=== PATIENT | male | born 1965 | race Caucasian/White ===

== ENCOUNTER 2020-08-13 15:36 | Emergency (ER) | payer OTHER ==
[2020-08-13 15:46] VITALS: BP 147/85; PULSE 82; TEMP 98; BMI 29.2
[2020-08-13] MEDS ORDERED: NAPROXEN 500 MG TABLET PO ONE (15:58)
[2020-08-13] MEDS ORDERED: NAPROXEN 500 MG TABLET ONE (16:17)
[2020-08-13 16:34] LABS: BASO % 0.4 % (0-2.0); EOS % 0.9 % (0-4.5); HEMATOCRIT 42.2 % (35.4-49); HEMOGLOBIN 14.3 GM/dl (11.7-16.9); MCH 29.8 pg (25.7-33.7); MEAN CELL VOLUME 87.6 fl (80-96); MEAN PLT VOLUME 8.3 fl (7.5-11.1); MONO % 7.5 % (3.8-10.2); NEUT % 68.2 % (42.8-82.8); PLATELET COUNT 207 K/MM3 (134-434); RBC 4.81 M/mm3 (4.00-5.60); RDW 12.4 % (11.9-15.9); WHITE BLOOD COUNT 10.6 K/mm3 (4.0-10.8)
[2020-08-13 17:12] LABS: ALBUMIN 4.4 g/dl (3.4-5.0); BILIRUBIN,TOTAL 0.5 mg/dl (0.2-1); CREATININE 1.1 mg/dl (0.55-1.3); POTASSIUM 4.1 mmol/L (3.5-5.1); TOT PROT 6.6 g/dl (6.4-8.2)
[2020-08-13 17:56] LABS: EPITHELIAL CELLS RARE /hpf
== END 2020-08-13 18:59 | disposition home or self-care (01) ==
LOC: FER 15:36
DX: N20.0 Calculus of kidney (principal); R10.9 Unspecified abdominal pain; R11.0 Nausea
CPT/HCPCS: 36415; 74176-TC; 80053; 81003; 81015; 85025; 87086; 99284-25

== ENCOUNTER 2020-08-17 12:48 | Emergency (ER) | payer OTHER ==
[2020-08-17 13:14] VITALS: BP 120/90; PULSE 65; TEMP 99.1; BMI 29.2
[2020-08-17] MEDS ORDERED: ACETAMINOPHEN 1000 MG/100 ML VIAL (NON FORMULARY) IVPB ONE (13:25)
[2020-08-17] MEDS ORDERED: ONDANSETRON 4 MG/2 ML VIAL IVPUSH ONE (13:25)
[2020-08-17] MEDS ORDERED: LACTATED RINGERS SOLUTION 1,000 ML/1,000 ML INFUS.BAG IV STA (13:26)
[2020-08-17] MEDS ORDERED: KETOROLAC TROMETHAMINE 30 MG/1 ML VIAL IVPUSH ONE (13:29)
[2020-08-17] MEDS ORDERED: KETOROLAC TROMETHAMINE 30 MG/1 ML VIAL ONE (13:40)
[2020-08-17] MEDS ORDERED: ONDANSETRON 4 MG/2 ML VIAL ONE (13:41)
[2020-08-17] MEDS ORDERED: ACETAMINOPHEN INJECTION 100 ML IVPB ONE (13:41)
[2020-08-17 14:19] LABS: HEMOGLOBIN 14.5 GM/dl (11.7-16.9); MEAN PLT VOLUME 8.8 fl (7.5-11.1)
[2020-08-17 14:22] LABS: BASO % 2.7 % (0-2.0); EOS % 1.6 % (0-4.5); HEMATOCRIT 42.3 % (35.4-49); LYMPH % 24.4 % (8-40); MCHC 34.2 g/dl (32.0-35.9); MEAN CELL VOLUME 87.6 fl (80-96); MONO % 7.7 % (3.8-10.2); NEUT % 63.6 % (42.8-82.8); PLATELET COUNT 246 K/MM3 (134-434); RBC 4.82 M/mm3 (4.00-5.60); RDW 12.3 % (11.9-15.9); WHITE BLOOD COUNT 9.4 K/mm3 (4.0-10.8)
[2020-08-17 14:23] LABS: ALBUMIN 4.3 g/dl (3.4-5.0); BILIRUBIN,TOTAL 0.4 mg/dl (0.2-1); CALCIUM 9.4 mg/dl (8.5-10); POTASSIUM 4.2 mmol/L (3.5-5.1); TOT PROT 6.5 g/dl (6.4-8.2)
[2020-08-17] MEDS ORDERED: TAMSULOSIN HCL 0.4 MG CAP PO ONE (14:33)
[2020-08-17] MEDS ORDERED: CEPHALEXIN MONOHYDRATE 500 MG CAPSULE (UD) PO ONE (14:33)
[2020-08-17 14:46] LABS: EPITHELIAL CELLS MODERATE /hpf
[2020-08-17] MEDS ORDERED: TAMSULOSIN HCL 0.4 MG CAP ONE (14:52)
[2020-08-17] MEDS ORDERED: CEPHALEXIN MONOHYDRATE 500 MG CAPSULE (UD) ONE (14:52)
== END 2020-08-17 15:17 | disposition home or self-care (01) ==
LOC: FER 12:48
PROC: 3E0333Z Introduction of Anti-inflammatory into Peripheral Vein, Percutaneous Approach (ICD-10-PCS; principal; 2020-08-17)
PROC: 3E0333Z Introduction of Anti-inflammatory into Peripheral Vein, Percutaneous Approach (ICD-10-PCS; 2020-08-17)
PROC: 3E033GC Introduction of Other Therapeutic Substance into Peripheral Vein, Percutaneous Approach (ICD-10-PCS; 2020-08-17)
DX: R10.9 Unspecified abdominal pain (principal); N20.0 Calculus of kidney; R11.2 Nausea with vomiting, unspecified
CPT/HCPCS: 36415; 76775; 80053; 81003; 81015; 85025; 87086; 99284-25; C9803; J0131; U0003

== ENCOUNTER 2020-08-19 05:28 | Day surgery (SDC) | payer OTHER ==
[2020-08-18 16:20] VITALS: BMI 27.4
[2020-08-19] MEDS ORDERED: ceFAZolin SODIUM 1 GM VIAL IVPB ONE (11:01)
[2020-08-19 12:52] VITALS: TEMP 96.4
[2020-08-19] MEDS ORDERED: ACETAMINOPHEN 325 MG TABLET (FP) ONE (13:55)
[2020-08-19] MEDS ORDERED: ACETAMINOPHEN 325 MG TABLET (FP) PO PRN (14:15)
[2020-08-19] MEDS ORDERED: LACTATED RINGERS SOLUTION 1,000 ML IV SCH (14:15)
[2020-08-19 16:44] VITALS: BP 157/79; PULSE 85
== END 2020-08-19 16:00 | disposition home or self-care (01) ==
LOC: JASU-SURG 05:28
PROVIDERS: ATTEND Urology
PROC: 0TF4XZZ Fragmentation in Left Kidney Pelvis, External Approach (ICD-10-PCS; principal; 2020-08-19 09:30)
DX: N20.0 Calculus of kidney (principal)

== ENCOUNTER 2021-05-26 10:10 | Emergency (ER) | payer OTHER ==
[2021-05-26 10:19] VITALS: BP 135/74; PULSE 84; TEMP 98; BMI 26.6
[2021-05-26] MEDS ORDERED: KETOROLAC TROMETHAMINE 15 MG/ML VIAL IVPUSH ONE (10:38)
[2021-05-26] MEDS ORDERED: METHOCARBAMOL 500 MG TABLET PO ONE (10:38)
[2021-05-26] MEDS ORDERED: KETOROLAC TROMETHAMINE 15 MG/ML VIAL IM ONE (10:43)
[2021-05-26] MEDS ORDERED: KETOROLAC TROMETHAMINE 15 MG/ML VIAL ONE (10:44)
[2021-05-26] MEDS ORDERED: METHOCARBAMOL 500 MG TABLET ONE (10:44)
[2021-05-26 11:54] LABS: ALBUMIN 4.1 g/dl (3.4-5.0); BILIRUBIN,TOTAL 0.3 mg/dl (0.2-1); CALCIUM 8.8 mg/dl (8.5-10); CREATININE 1.1 mg/dl (0.55-1.3); TOT PROT 6.8 g/dl (6.4-8.2)
[2021-05-26 15:16] LABS: BASO % 0.5 % (0-2.0); EOS % 1.2 % (0-4.5); HEMATOCRIT 43.7 % (35.4-49); LYMPH % 41.9 % (8-40); MCH 29.7 pg (25.7-33.7); MCHC 34.4 g/dl (32.0-35.9); MEAN CELL VOLUME 86.4 fl (80-96); MEAN PLT VOLUME 8.6 fl (7.5-11.1); NEUT % 48.4 % (42.8-82.8); PLATELET COUNT 177 10^3/uL (134-434); RBC 5.05 M/mm3 (4.00-5.60); RDW 13.6 % (11.9-15.9); WHITE BLOOD COUNT 3.4 K/mm3 (4.0-10.0)
[2021-05-27 23:06] LABS: SARS-CoV-2 NAA Detected (Not Detected)
== END 2021-05-26 13:51 | disposition home or self-care (01) ==
LOC: FER 10:10
PROC: 3E023GC Introduction of Other Therapeutic Substance into Muscle, Percutaneous Approach (ICD-10-PCS; principal; 2021-05-26)
DX: R51.9 Headache, unspecified (principal); R25.2 Cramp and spasm
CPT/HCPCS: 36415; 80053; 82550; 85025; 99284-25; C9803; U0003; U0005